=== PATIENT | female | born 1950 | race Caucasian/White ===

== ENCOUNTER 2021-07-13 15:40 | Inpatient (IN) ==
[2021-07-13] MEDS ORDERED: Naloxone 0.4 MG/ML INJ IVP PRN (19:19)
[2021-07-13] MEDS ORDERED: Melatonin 3 MG TABLET PO PRN (19:19)
[2021-07-13] MEDS ORDERED: 0.9 % Sodium Chloride 1,000 ML IVC SCH (21:30)
[2021-07-14] MEDS: Morphine Sulfate 2 MG/ML SYRINGE IVP PRN ×2 (00:25→09:26)
[2021-07-14 06:58] LABS: Hematocrit 31.3 % (35.3-44.9); Hemoglobin 10.5 g/dL (11.5-15.4); Mean Corpuscular HGB Conc 33.5 g/dL (31.6-35.5); Mean Corpuscular Hemoglobin 30.5 pg (28.0-33.3); Mean Platelet Volume 9.5 fL (9.4-12.4); Platelet Count 170 K/mcL (140-400); Red Blood Count 3.44 M/mcL (3.82-4.97); Red Cell Distribution Width 13.2 % (11.5-14.5); White Blood Count 3.5 K/mcL (4.3-11.1)
[2021-07-14 07:35] LABS: Albumin/Globulin Ratio 1.3 (1.1-2.2); Bilirubin,Total 0.7 mg/dL (0.3-1.0); Calcium 9.3 mg/dL (8.6-10.3); Magnesium 1.4 mg/dL (1.6-2.6); Phosphorous 3.6 mg/dL (2.7-4.5)
[2021-07-14 07:41] LABS: Thyroid Stimulating Hormone 6.322 mcIU/mL (0.340-5.600)
[2021-07-14] MEDS ORDERED: *HR* FentaNYL (PF) 100 MCG/2 ML VIAL ONE (13:13)
[2021-07-14] MEDS ORDERED: *HR* Propofol 200 MG/20 ML VIAL IVP ONE (13:14)
[2021-07-14] MEDS ORDERED: Lidocaine -MPF 2% 2 ML VIAL ONE (13:15)
[2021-07-14] MEDS ORDERED: Ondansetron 4 MG/2 ML VIAL ONE (13:15)
[2021-07-14] MEDS ORDERED: Naloxone 0.4 MG/ML INJ IVP PRN ×3 (13:49→16:56)
[2021-07-14] MEDS ORDERED: Nitroglycerin 0.4 MG TAB.SUBL SL PRN ×2 (13:49→16:56)
[2021-07-14] MEDS ORDERED: Ondansetron 4 MG/2 ML VIAL IVP PRN ×2 (13:49→16:56)
[2021-07-14] MEDS ORDERED: Ipratropium Neb 0.5 MG NEBULIZER IH PRN (13:49)
[2021-07-14] MEDS ORDERED: Albuterol 2.5 MG/3 ML NEBULIZER IH PRN (13:49)
[2021-07-14] MEDS ORDERED: Clindamycin 600 MG/50 ML 600 MG/50 ML IV.SOLN IVPB ONE (14:26)
[2021-07-14] MEDS: *HR* FentaNYL (PF) 100 MCG/2 ML VIAL IVP PRN ×2 (16:09→16:16)
[2021-07-14] MEDS ORDERED: Melatonin 3 MG TABLET PO PRN (16:56)
[2021-07-14] MEDS ORDERED: Morphine Sulfate 2 MG/ML SYRINGE IVP PRN (16:56)
[2021-07-14] MEDS: Clindamycin 900 MG/50 ML 900 MG/50 ML IV.SOLN IVPB SCH (18:02)
[2021-07-14] MEDS: Acetaminophen 325 MG TABLET PO SCH ×2 (19:59)
[2021-07-15] MEDS: Clindamycin 900 MG/50 ML 900 MG/50 ML IV.SOLN IVPB SCH (00:52)
[2021-07-15] MEDS: Acetaminophen 325 MG TABLET PO SCH ×7 (00:57→23:20)
[2021-07-15] MEDS: Cholecalciferol (D-3) 1,000 UNIT (25MCG) TABLET PO SCH (09:49)
[2021-07-15] MEDS: *HR* Enoxaparin 30 MG/0.3 ML SYRINGE SQ SCH (16:49)
[2021-07-15 17:56] LABS: BUN/Creatinine Ratio 18 (6-26); Blood Urea Nitrogen 14 mg/dL (8-23); Calcium 9.1 mg/dL (8.6-10.3); Carbon Dioxide 21 mEq/L (23-29); Chloride 92 mEq/L (98-107); Glucose 113 mg/dL (70-105); Magnesium 1.2 mg/dL (1.6-2.6); Osmolality,Calculated 257 (280-300); Potassium 3.6 mEq/L (3.5-5.1); Sodium 123 mEq/L (136-145); eGFR For African Americans > 60 (> 60); eGFR For Non-African Americans > 60 (> 60)
[2021-07-15] MEDS: Ringers Solution, Lactated 1,000 ML IVC SCH ×2 (19:40→20:30)
[2021-07-15] MEDS: 0.9 % Sodium Chloride 1,000 ML IVC SCH (22:12)
[2021-07-16] MEDS: Acetaminophen 325 MG TABLET PO SCH ×4 (03:48→14:58)
[2021-07-16] MEDS: *HR* Enoxaparin 30 MG/0.3 ML SYRINGE SQ SCH ×2 (03:48→14:56)
[2021-07-16 06:38] VITALS: O2SAT 93
[2021-07-16 06:52] LABS: Basophils % 0.3 %; Eosinophils # 0.1 K/mcL (0.0-0.6); Eosinophils % 1.9 %; Hemoglobin 8.4 g/dL (11.5-15.4); Immature Granulocytes % 0.3 % (0-4); Lymphocytes # 0.5 K/mcL (0.6-4.6); Lymphocytes % 13.1 %; Mean Corpuscular HGB Conc 33.6 g/dL (31.6-35.5); Mean Corpuscular Hemoglobin 30.7 pg (28.0-33.3); Mean Corpuscular Volume 91.2 fL (83.0-100.0); Mean Platelet Volume 9.7 fL (9.4-12.4); Monocytes # 0.5 K/mcL (0.0-1.3); Monocytes % 14.2 %; Neutrophils # 2.6 K/mcL (1.6-8.9); Platelet Count 150 K/mcL (140-400); Red Blood Count 2.74 M/mcL (3.82-4.97); Red Cell Distribution Width 13.1 % (11.5-14.5); Segmented Neutrophils % 70.2 %; White Blood Count 3.7 K/mcL (4.3-11.1)
[2021-07-16 07:18] LABS: BUN/Creatinine Ratio 17 (6-26); Blood Urea Nitrogen 12 mg/dL (8-23); Calcium 8.9 mg/dL (8.6-10.3); Carbon Dioxide 21 mEq/L (23-29); Chloride 97 mEq/L (98-107); Glucose 94 mg/dL (70-105); Osmolality,Calculated 262 (280-300); Potassium 3.7 mEq/L (3.5-5.1); Sodium 126 mEq/L (136-145); eGFR For African Americans > 60 (> 60); eGFR For Non-African Americans > 60 (> 60)
[2021-07-16] MEDS: Cholecalciferol (D-3) 1,000 UNIT (25MCG) TABLET PO SCH (07:59)
[2021-07-16] MEDS: 0.9 % Sodium Chloride 1,000 ML IVC SCH (07:59)
[2021-07-16 10:19] VITALS: BP 130/75; PULSE 85; TEMP 97.9
== END 2021-07-16 18:15 | disposition home health service (06) | DRG 481 ==
LOC: 4WAOSI
PROVIDERS: ADMIT Internal Medicine; ATTEND Internal Medicine

== ENCOUNTER 2021-11-10 07:29 | Observation (INO) ==
[2021-11-10] MEDS ORDERED: Famotidine 20 MG/2 ML VIAL IVP ONE (07:56)
[2021-11-10] MEDS ORDERED: Acetaminophen IV 1,000 MG/100 ML BAG IVPB ONE (07:57)
[2021-11-10 08:17] LABS: Bilirubin,Urine Negative (Negative); Blood,Urine Negative (Negative); Clarity,Urine Clear (Clear); Color,Urine Colorless (Yellow); Glucose,Urine (UA) Normal (Normal); Ketones,Urine Negative (Negative); Leukocyte Esterase,Urine Negative (Negative); Nitrite,Urine Negative (Negative); Protein,Urine Negative (Neg-Trace); Specific Gravity,Urine 1.006 (1.010-1.025); Urobilinogen,Urine Normal (Normal)
[2021-11-10] MEDS ORDERED: Ringers Solution, Lactated 1,000 ML IVC SCH ×2 (09:15→14:14)
[2021-11-10] MEDS ORDERED: *HR* Midazolam HCl 2 MG/2 ML VIAL ONE (09:29)
[2021-11-10] MEDS ORDERED: *HR* FentaNYL (PF) 100 MCG/2 ML VIAL ONE ×2 (09:29→11:50)
[2021-11-10] MEDS ORDERED: *HR* Propofol 200 MG/20 ML VIAL IVP ONE (09:29)
[2021-11-10] MEDS ORDERED: *HR* Succinylcholine 200 MG/10 ML VIAL IVP ONE (09:30)
[2021-11-10] MEDS ORDERED: Lidocaine HCL 4 ML Topical Solution (Laryng-O-Jet Kit Sterile Pak) TP ONE (09:30)
[2021-11-10] MEDS ORDERED: Lidocaine -MPF 2% 5 ML VIAL ONE (09:30)
[2021-11-10] MEDS ORDERED: Ondansetron 4 MG/2 ML VIAL ONE (09:30)
[2021-11-10] MEDS ORDERED: *HR* Rocuronium Bromide 50 MG/5 ML VIAL ONE (09:30)
[2021-11-10] MEDS ORDERED: Ondansetron 4 MG/2 ML VIAL IVP PRN ×2 (11:18→14:14)
[2021-11-10] MEDS ORDERED: *HR* OxyCODONE Immed Rel 5 MG TABLET PO PRN ×2 (11:18→14:14)
[2021-11-10] MEDS ORDERED: *HR* HYDROmorphone PF 0.5 MG/0.5 ML SYRINGE IVP PRN (11:18)
[2021-11-10] MEDS ORDERED: Tranexamic Acid 1,000 MG/10 ML VIAL ONE (11:40)
[2021-11-10] MEDS ORDERED: Neostigmine Methylsulfate 3 MG/3 ML SYRINGE ONE (12:50)
[2021-11-10] MEDS ORDERED: *HR* Promethazine 25 MG/ML VIAL IM PRN (14:14)
[2021-11-10] MEDS ORDERED: *HR* HYDROmorphone (PF) 1 MG/ML SYRINGE IVP PRN (14:14)
[2021-11-10] MEDS ORDERED: MOM Conc 10 ML UD.LIQ PO PRN (14:14)
[2021-11-10] MEDS ORDERED: Naloxone 0.4 MG/ML INJ IVP PRN (14:14)
[2021-11-10] MEDS ORDERED: Sennosides 8.6 MG TABLET PO PRN (14:14)
[2021-11-10] MEDS: Ascorbic Acid 500 MG TABLET PO SCH (17:13)
[2021-11-10] MEDS: *HR* OxyCODONE Immed Rel 5 MG TABLET PO PRN ×2 (19:23→23:23)
[2021-11-11] MEDS: *HR* OxyCODONE Immed Rel 5 MG TABLET PO PRN ×4 (03:29→22:09)
[2021-11-11 05:53] LABS: Basophils % 0.2 %; Hematocrit 23.6 % (35.3-44.9); Immature Granulocytes % 0.3 % (0-4); Lymphocytes # 0.7 K/mcL (0.6-4.6); Lymphocytes % 11.2 %; Mean Corpuscular HGB Conc 33.9 g/dL (31.6-35.5); Mean Corpuscular Hemoglobin 31.4 pg (28.0-33.3); Mean Corpuscular Volume 92.5 fL (83.0-100.0); Mean Platelet Volume 9.7 fL (9.4-12.4); Monocytes # 0.6 K/mcL (0.0-1.3); Monocytes % 10.4 %; Neutrophils # 4.7 K/mcL (1.6-8.9); Platelet Count 205 K/mcL (140-400); Red Blood Count 2.55 M/mcL (3.82-4.97); Red Cell Distribution Width 14.2 % (11.5-14.5); Segmented Neutrophils % 77.9 %
[2021-11-11 06:20] LABS: Potassium 4.5 mEq/L (3.5-5.1)
[2021-11-11] MEDS ORDERED: 0.9 % Sodium Chloride 1,000 ML IVC SCH (08:30)
[2021-11-11] MEDS: Ascorbic Acid 500 MG TABLET PO SCH ×2 (08:38→16:02)
[2021-11-11] MEDS: Multivit/Ca/Min/Fe/FA 1 TAB TABLET PO SCH (08:38)
[2021-11-11] MEDS: lisinopriL 20 MG TABLET PO SCH (08:38)
[2021-11-11] MEDS: Aspirin Enteric Coated 325 MG Tablet PO SCH ×2 (13:05→22:08)
[2021-11-12 05:06] LABS: Hematocrit 21.1 % (35.3-44.9); Hemoglobin 7.2 g/dL (11.5-15.4); Immature Granulocytes % 0.4 % (0-4); Mean Corpuscular HGB Conc 34.1 g/dL (31.6-35.5); Mean Corpuscular Hemoglobin 31.4 pg (28.0-33.3); Mean Corpuscular Volume 92.1 fL (83.0-100.0); Mean Platelet Volume 9.8 fL (9.4-12.4); Platelet Count 163 K/mcL (140-400); Red Blood Count 2.29 M/mcL (3.82-4.97); Red Cell Distribution Width 14.4 % (11.5-14.5); Segmented Neutrophils % 68.3 %; White Blood Count 5.4 K/mcL (4.3-11.1)
[2021-11-12 05:07] LABS: Eosinophils # 0.1 K/mcL (0.0-0.6); Eosinophils % 1.7 %; Lymphocytes # 0.9 K/mcL (0.6-4.6); Lymphocytes % 17.2 %; Monocytes # 0.7 K/mcL (0.0-1.3); Monocytes % 12.4 %; Neutrophils # 3.7 K/mcL (1.6-8.9)
[2021-11-12 05:49] LABS: BUN/Creatinine Ratio 15 (6-26); Blood Urea Nitrogen 11 mg/dL (8-23); Calcium 7.7 mg/dL (8.6-10.3); Carbon Dioxide 23 mEq/L (23-29); Chloride 92 mEq/L (98-107); Glucose 103 mg/dL (70-105); Osmolality,Calculated 254 (280-300); Potassium 3.7 mEq/L (3.5-5.1); Sodium 122 mEq/L (136-145)
[2021-11-12] MEDS: *HR* OxyCODONE Immed Rel 5 MG TABLET PO PRN ×4 (06:59→20:41)
[2021-11-12] MEDS: Ascorbic Acid 500 MG TABLET PO SCH ×2 (08:10→16:24)
[2021-11-12] MEDS: Multivit/Ca/Min/Fe/FA 1 TAB TABLET PO SCH (08:10)
[2021-11-12] MEDS: Aspirin Enteric Coated 325 MG Tablet PO SCH ×2 (08:10→19:36)
[2021-11-12] MEDS: lisinopriL 20 MG TABLET PO SCH (08:10)
[2021-11-12] MEDS ORDERED: Simethicone 80 MG TAB.CHEW PO PRN (08:43)
[2021-11-12 14:38] LABS: Uric Acid 6.5 mg/dL (2.3-7.6)
[2021-11-12 14:51] LABS: Thyroid Stimulating Hormone 2.326 mcIU/mL (0.340-5.600)
[2021-11-13] MEDS: *HR* OxyCODONE Immed Rel 5 MG TABLET PO PRN ×3 (00:33→09:32)
[2021-11-13 06:39] VITALS: TEMP 98.5
[2021-11-13 09:15] LABS: Basophils % 0.2 %; Eosinophils # 0.1 K/mcL (0.0-0.6); Eosinophils % 1.9 %; Hematocrit 21.7 % (35.3-44.9); Hemoglobin 7.4 g/dL (11.5-15.4); Immature Granulocytes % 0.5 % (0-4); Lymphocytes # 0.9 K/mcL (0.6-4.6); Lymphocytes % 13.3 %; Mean Corpuscular HGB Conc 34.1 g/dL (31.6-35.5); Mean Corpuscular Hemoglobin 31.9 pg (28.0-33.3); Mean Corpuscular Volume 93.5 fL (83.0-100.0); Mean Platelet Volume 9.4 fL (9.4-12.4); Monocytes # 0.7 K/mcL (0.0-1.3); Monocytes % 11.3 %; Neutrophils # 4.7 K/mcL (1.6-8.9); Platelet Count 206 K/mcL (140-400); Red Blood Count 2.32 M/mcL (3.82-4.97); Red Cell Distribution Width 14.5 % (11.5-14.5); Segmented Neutrophils % 72.8 %; White Blood Count 6.5 K/mcL (4.3-11.1)
[2021-11-13] MEDS: Ascorbic Acid 500 MG TABLET PO SCH (09:33)
[2021-11-13] MEDS: Multivit/Ca/Min/Fe/FA 1 TAB TABLET PO SCH (09:33)
[2021-11-13] MEDS: Aspirin Enteric Coated 325 MG Tablet PO SCH (09:33)
[2021-11-13 09:36] LABS: BUN/Creatinine Ratio 13 (6-26); Blood Urea Nitrogen 7 mg/dL (8-23); Calcium 8.1 mg/dL (8.6-10.3); Carbon Dioxide 22 mEq/L (23-29); Chloride 98 mEq/L (98-107); Glucose 126 mg/dL (70-105); Osmolality,Calculated 264 (280-300); Potassium 3.5 mEq/L (3.5-5.1); Sodium 127 mEq/L (136-145)
[2021-11-13] MEDS: lisinopriL 20 MG TABLET PO SCH (09:43)
[2021-11-13 10:32] VITALS: BP 120/77; PULSE 72; O2SAT 97
== END 2021-11-13 11:50 | disposition home or self-care (01) ==
LOC: SDCAOSI 07:29 → 4WAOSI 07:29
PROVIDERS: ADMIT Orthopaedic Surgery; ATTEND Orthopaedic Surgery